=== PATIENT | male | born 1990 | race African-American/Black ===

== ENCOUNTER 2017-02-21 11:19 | Emergency (ER) | payer SELFPAY ==
[2017-02-21 11:36] VITALS: BP 137/69
[2017-02-21] MEDS ORDERED: TORADOL 60 MG VIAL IM ONE (12:21)
--- NOTE | 2017-02-21 12:21 | DR.HEADACH ---
HPI - Time Seen Time seen: 12:15 - Primary Care Physician Primary Care Physician: LAURY - HPI Comment HPI Comment: Patient complaint of headache for five days, has taken aleve w/o relief. There is no n/v or blurred vision,pain is 6/10. Also has a sore area on right cheek. - Complaint/Symptoms Chief Complaint:: PT C/O HAVING BRITT FOR THE PAST FIVE DAYS AND WALKING MAKES THE PAIN WORSE AND HE IS HAVING NAUSEA .. Self Treatment fo Chief Complaint: ALEVE... - Source History Provided: Patient - Mode of Arrival Mode of Arrival: Ambulatory - Timing Onset of Chief Complaint: 02/17/17 - Location Headache Location: Generalized - Severity Headache Severity: Moderate PMH - PMH Past Medical History: No Past Surgical History: Yes Past Surgical History Comment: EYE SURGERY A KID,, - Family History History of Family Medical Conditions: Yes Family Medical History: Diabetes Mellitus, Hypertension - Social History Does patient currently use any type of tobacco product: Yes Have you used tobacco products in the last 12 months: Yes Type of Tobacco Use: Cigars How many years tobacco product used: 7 Does any household member use tobacco: No Alcohol Use: None Do you use any recreational Drugs:: No Lives With: Family Lives Where: Home - infectious screening In the last 2 months have you had wt loss of >10#?: NO Have you had fever, night sweats or hemotysis?: No Have you traveled outside the country in the last 6 months?: No Isolation: Standard ROS - Review of Systems Eyes: No Symptoms Reported ENTM: No Symptoms Reported Respiratoy: No Symptoms Reported Cardiovascular: No Symptoms Reported Gastrointestinal/Abdominal: No Symptoms Reported Genitourinary: No Symptoms Reported Neurological: No Symptoms Reported Musculoskeletal: No Symptoms Reported Integumentary: No Symptoms Reported Hematologic/Lymphatic: No Symptoms Reported Endocrine: No Symptoms Reported Psychiatric: No Symptoms Reported All Other Systems: Reviewed and Negative PE - Vital Signs Vitals: Temperature 99.1 F Pulse Rate 54 Respiratory Rate 18 Blood Pressure 137/69 O2 Sat by Pulse Oximetry 100 - General Limitations: No Limitations General Appearance: Alert, In No Apparent Distress - Head Head Exam: Normal Inspection, Atraumatic - Eyes Eye exam: Normal Appearance, PERRL, EOMI Eyelids: Normal Inspection: Bilateral Pupils: Regular, Round: Bilateral Sclera/Conjunctival: Normal Inspection: Bilateral - ENT ENT Exam: Normal Exam External Ear Exam: Normal External Inspection TM/Canal Exam: Bilateral Normal Nose Exam: Normal Nose Exam Mouth Exam: Normal Inspection Teeth Exam: Normal Inspection Throat Exam: Normal Inspection - Neck Neck Exam: Normal Inspection - Chest Chest Inspection: Normal Inspection - Respiratory Respiratory Exam: Normal Lung Sounds Bilat Respiratory Exam: Bilateral Clear to Auscultation - Cardiovascular Cardiovascular Exam: Regular Rate - Abdominal Exam Abdominal Exam: Normal Inspection Abdominal Tenderness: negative: RUQ, RLQ, LUQ, LLQ, Epigastrium, Suprapubic, Diffuse, Mild, Moderate, Severe, Other - Extremities Extremities Exam: Normal Inspection - Back Back Exam: Normal Inspection - Neurologic Neurological Exam: Alert, Oriented X3, CN II-XII Intact - Psychiatric Psychiatric Exam: Normal Affect, Normal Mood - Skin Skin Exam: Warm, Dry, Intact, Other (pulstle left cheek) - Diagnosis Discharge Problem: Carbuncle and furuncle of face Headache Qualifiers: Headache type: unspecified Headache chronicity pattern: chronic headache Intractability: not intractable Qualified Code(s): R51 - Headache - Discharge Plan Condition: Stable - Follow ups/Referrals Follow ups/Referrals: NFD,None [Primary Care Provider] - 3 days - Instructions
[2017-02-21] MEDS ORDERED: TORADOL 60 MG VIAL ONE (12:31)
== END 2017-02-21 13:03 | disposition home or self-care (01) ==
LOC: ER 11:44
DX: L02.03 Carbuncle of face (principal); L02.02 Furuncle of face; R51 Headache
CPT/HCPCS: 96372; 99282; J1885